=== PATIENT | female | born 1980 | race American Indian/Alaskan Native ===

== ENCOUNTER 2019-05-21 09:15 | Emergency (ER) | payer OTHER ==
[2019-05-21] MEDS ORDERED: HYDROcodone/ACETAMINOPHEN 5-325 MG TAB PO ONE (11:12)
--- NOTE | 2019-05-21 12:10 | Emergency Department Report ---
ED General Adult HPI - General Chief complaint: Rectal Pain Stated complaint: HEMORROIDS Time Seen by Provider: 05/21/19 10:35 Source: patient Mode of arrival: Ambulatory Limitations: No Limitations - History of Present Illness Initial comments: This is a 38-year-old female with a history of hemorrhages who presents to ED complaining of rectal pain from hemorrhages for the past 10 days. Patient states the last episode happened 6 months ago and this is her second episode this year. Patient states that bowel movements are regular and she had a bowel movement this morning. Patient states the pain is alleviated with bowel movement. She denies abdominal pain, blood in stool, fever, chills, nausea vomiting or any other symptoms. - Related Data Previous Rx's Medication Instructions Recorded Last Taken Type Hydrocortisone [Anucort-HC SUPPOS] 25 mg RC BID #30 supp.rect 05/21/19 Unknown Rx Hydrocortisone [Anusol-Hc 2.5% TOP 1 applic RC TID #1 cream..g. 05/21/19 Unknown Rx CREAM] Ibuprofen [Motrin] 800 mg PO Q8HR #20 tablet 05/21/19 Unknown Rx Allergies Allergy/AdvReac Type Severity Reaction Status Date / Time No Known Allergies Allergy Unverified 05/21/19 09:16 ED Review of Systems ROS: Stated complaint: HEMORROIDS Other details as noted in HPI Comment: All other systems reviewed and negative ED Past Medical Hx - Surgical History Additional Surgical History: T & A / C SECTION - Social History Smoking Status: Current Every Day Smoker Substance Use Type: Alcohol - Medications Home Medications: Home Medications Medication Instructions Recorded Confirmed Last Taken Type Hydrocortisone [Anucort-HC SUPPOS] 25 mg RC BID #30 supp.rect 05/21/19 Unknown Rx Hydrocortisone [Anusol-Hc 2.5% TOP 1 applic RC TID #1 cream..g. 05/21/19 Unknown Rx CREAM] Ibuprofen [Motrin] 800 mg PO Q8HR #20 tablet 05/21/19 Unknown Rx ED Physical Exam - General Limitations: No Limitations (external, no swelling , non tender,) General appearance: alert, in no apparent distress - Head Head exam: Present: atraumatic, normocephalic - Eye Eye exam: Present: normal appearance - ENT ENT exam: Present: mucous membranes moist - Neck Neck exam: Present: normal inspection - Respiratory Respiratory exam: Present: normal lung sounds bilaterally. Absent: respiratory distress - Cardiovascular Cardiovascular Exam: Present: regular rate, normal rhythm. Absent: systolic murmur, diastolic murmur, rubs, gallop - GI/Abdominal GI/Abdominal exam: Present: soft, normal bowel sounds - Rectal Rectal exam: Present: normal rectal tone, hemorrhoids, tenderness. Absent: fecal impaction, mass - Extremities Exam Extremities exam: Present: normal inspection, full ROM - Back Exam Back exam: Present: normal inspection - Neurological Exam Neurological exam: Present: alert, oriented X3 - Psychiatric Psychiatric exam: Present: normal affect, normal mood - Skin Skin exam: Present: warm, dry, intact, normal color. Absent: rash ED Course Vital Signs 05/21/19 09:21 Temperature 98.0 F Pulse Rate 110 H Respiratory 20 Rate Blood Pressure 120/90 O2 Sat by Pulse 100 Oximetry ED Medical Decision Making - Medical Decision Making 38-year-old female who presents to ED complaining rectal pain from hemorrhoids external + pain medication was given the ED. Discussed with patient will discharge her with medication suppositories for hemorrhoids. Discussed follow-up with urology. Referrals given. Discussed the patient hive fibrous diet. Vital signs are normal patient is in no acute distress. Critical care attestation.: If time is entered above; I have spent that time in minutes in the direct care of this critically ill patient, excluding procedure time. ED Disposition Clinical Impression: External hemorrhoids without complication Disposition: DC-01 TO HOME OR SELFCARE Is pt being admited?: No Does the pt Need Aspirin: No Condition: Stable Instructions: Hemorrhoidectomy (ED), Hemorrhoids (ED) Additional Instructions: Make sure to follow up with the primary care physician as discussed. Take all your medications as you've been prescribed. If you have any worsening symptoms or develop new symptoms please return to ED immediately. Prescriptions: Hydrocortisone [Anucort-HC SUPPOS] 25 mg RC BID #30 supp.rect Hydrocortisone [Anusol-Hc 2.5% TOP CREAM] 1 applic RC TID #1 cream..g. Ibuprofen [Motrin] 800 mg PO Q8HR #20 tablet Referrals: [facility] [Outside] - 3-5 Days [facility] [Outside] - 3-5 Days KORY MCLEAN MD [Referring] - 3-5 Days Forms: Accompanied Note, Work/School Release Form(ED) Time of Disposition: 12:16
[2019-05-21 13:07] VITALS: BP 120/87
== END 2019-05-21 13:07 | disposition home or self-care (01) ==
LOC: ED 09:15
DX: K64.4 Residual hemorrhoidal skin tags (principal); F17.200 Nicotine dependence, unspecified, uncomplicated; F10.10 Alcohol abuse, uncomplicated; Z79.899 Other long term (current) drug therapy
CPT/HCPCS: 99282

== ENCOUNTER 2019-05-25 13:47 | Emergency (ER) | payer OTHER ==
[2019-05-25 14:36] VITALS: BP 129/76
--- NOTE | 2019-05-25 14:38 | Event Note ---
ED Screening Note Date of service: 05/25/19 Time: 14:37 ED Screening Note: 38 y o female returns to Ed for recta pain stating she wasnt able to follow up with rectal pain from hemmorhoids, states pain is only locaalized to rectal, normal BM, currently on suppositories denies rectal bleeding This initial assessment/diagnostic orders/clinical plan/treatment(s) is/are subject to change based on patients health status, clinical progression and re- assessment by fellow clinical providers in the ED. Further treatment and workup at subsequent clinical providers discretion. Patient/guardian urged not to elope from the ED as their condition may be serious if not clinically assessed and managed. Initial orders include: Follow GI referral as given on saturday VSS no acute distress d/c instructions given to f/u
== END 2019-05-25 15:29 | disposition left against medical advice (07) ==
LOC: ED 13:47
DX: R10.2 Pelvic and perineal pain (principal); Z53.21 Procedure and treatment not carried out due to patient leaving prior to being seen by health care provider

== ENCOUNTER 2019-06-20 15:33 | Emergency (ER) | payer OTHER ==
[2019-06-20 16:03] VITALS: BP 127/77
--- NOTE | 2019-06-20 17:35 | Event Note ---
ED Screening Note Date of service: 06/20/19 Time: 17:31 ED Screening Note: 38 y/o female comes in for syncope today. Has this happen 3 times in the past. Did not hit head. Unwitnessed. LMP 06/04/19. This initial assessment/diagnostic orders/clinical plan/treatment(s) is/are subject to change based on patients health status, clinical progression and re- assessment by fellow clinical providers in the ED. Further treatment and workup at subsequent clinical providers discretion. Patient/guardian urged not to elope from the ED as their condition may be serious if not clinically assessed and managed. Initial orders include:
[2019-06-20 18:43] LABS: Basophils # (Auto) 0.1 K/mm3 (0.0-0.1); Basophils % (Auto) 0.5 % (0.0-1.8); Eosinophils % (Auto) 0.4 % (0.0-4.3); Hematocrit 43.8 % (30.3-42.9); Hemoglobin 14.3 gm/dl (10.1-14.3); Lymphocytes # (Auto) 1.4 K/mm3 (1.2-5.4); Lymphocytes % (Auto) 10.5 % (13.4-35.0); Mean Corpuscular HGB Conc 33 % (30-34); Mean Corpuscular Volume 88 fl (79-97); Monocytes # (Auto) 0.8 K/mm3 (0.0-0.8); Monocytes % (Auto) 5.9 % (0.0-7.3); Platelet Count 309 K/mm3 (140-440); Red Blood Count 4.97 M/mm3 (3.65-5.03); Red Cell Distribution Width 14.6 % (13.2-15.2)
[2019-06-20 19:10] LABS: Alanine Aminotransferase 11 units/L (7-56); Albumin 4.5 g/dL (3.9-5); BUN/Creatinine Ratio 13; Blood Urea Nitrogen 12 mg/dL (7-17); Calcium 9.9 mg/dL (8.4-10.2); Hemolysis Index 16
== END 2019-06-20 18:35 | disposition left against medical advice (07) ==
LOC: ED 15:33
DX: R55 Syncope and collapse (principal); Z53.21 Procedure and treatment not carried out due to patient leaving prior to being seen by health care provider
CPT/HCPCS: 36415; 80053; 85025; 93005; 93010

== ENCOUNTER 2021-03-10 09:35 | Inpatient (IN) | payer MEDICAID ==
[2021-03-10] MEDS ORDERED: LACTATED RINGERS 1,000 ML ONE ×2 (09:55→11:52)
--- NOTE | 2021-03-10 10:07 | Anesthesia Consultation ---
Anesthesia Consult and Med Hx Date of service: 03/10/21 - Airway Anesthetic Teeth Evaluation: Good ROM Head & Neck: Adequate Mental/Hyoid Distance: Adequate Mallampati Class: Class II Intubation Access Assessment: Probably Good - Pulmonary Exam CTA: Yes - Cardiac Exam Cardiac Exam: RRR - Pre-Operative Health Status ASA Pre-Surgery Classification: ASA2 Proposed Anesthetic Plan: Spinal
--- NOTE | 2021-03-10 10:07 | Anesthesia Day of Surgery ---
Anesthesia Day of Surgery - Day of Surgery Patient Examined: Yes Patient H&P Reviewed: Yes Patient is NPO: Yes
[2021-03-10] MEDS ORDERED: METOCLOPRAMIDE 10 MG/2 ML INJ IV ONE (10:20)
[2021-03-10] MEDS ORDERED: BICITRA ORAL LIQD 30ML PO ONE (10:20)
[2021-03-10] MEDS ORDERED: FAMOTIDINE 20 MG/2 ML INJ IV ONE (10:20)
--- NOTE | 2021-03-10 10:20 | History and Physical Report ---
History of Present Illness Date of examination: 03/10/21 Date of admission: 03/10/21 09:35 Chief complaint: Intrauterine growth restriction History of present illness: 40-year-old -0-0-1 at 38+1 weeks who presents for a repeat delivery secondary to intrauterine growth restriction, history of a prior delivery, pericardial effusion in the fetus. The patient initiated her care in the first trimester. Her was also complicated by a uterine anomaly but evidence of a bicornuate uterus, advanced maternal age, history of genital herpes, and a history of COVID during this . The patient elected to undergo a repeat delivery. Past History Past Medical History: other (Uterine anomaly) Past Surgical History: tonsillectomy, section Social history: - Obstetrical History Expected Date of Delivery: 03/23/21 Actual Gestation: 38 Week(s) 1 Day(s) : 2 Para: 1 Hx # Term Pregnancies: 1 Number of Pregnancies: 0 Spontaneous Abortions: 0 Induced : 0 Number of Living Children: 1 Medications and Allergies Allergies Allergy/AdvReac Type Severity Reaction Status Date / Time lactase [From Dairy Aid] Allergy Rash Verified 03/10/21 10:17 Milk Containing Products Allergy Rash Verified 03/10/21 10:17 Home Medications Medication Instructions Recorded Confirmed Last Taken Type Hydrocortisone [Anucort-HC SUPPOS] 25 mg RC BID #30 supp.rect 05/21/19 Unknown Rx Hydrocortisone [Anusol-Hc 2.5% TOP 1 applic RC TID #1 cream..g. 05/21/19 Unknown Rx CREAM] Ibuprofen [Motrin] 800 mg PO Q8HR #20 tablet 05/21/19 Unknown Rx Review of Systems All systems: negative Genitourinary: no leakage of fluid, no contractions - Vital Signs Vital signs: Vital Signs Pulse BP 77 114/74 03/10/21 10:07 03/10/21 10:07 Temp Pulse Resp BP Pulse Ox 74 114/74 99 03/10/21 10:16 03/10/21 10:07 03/10/21 10:16 - Physical Exam Breasts: Positive: deferred, mass Lungs: Positive: Clear to auscultation Abdomen: Positive: normal appearance Results Result Diagrams: 03/10/21 10:11 All other labs normal. Assessment and Plan - Patient Problems (1) Intrauterine growth restriction affecting care of mother Current Visit: Yes Status: Acute Plan to address problem: Will proceed with a repeat delivery (2) Previous delivery, delivered Current Visit: Yes Status: Acute (3) Advanced maternal age (AMA) in Current Visit: Yes Status: Acute
[2021-03-10] MEDS ORDERED: LACTATED RINGERS 1,000 ML IV SCH (10:30)
[2021-03-10 10:49] LABS: Basophils # (Auto) 0.1 K/mm3 (0.0-0.1); Basophils % (Auto) 0.9 % (0.0-1.8); Eosinophils # (Auto) 0.1 K/mm3 (0.0-0.4); Eosinophils % (Auto) 1.9 % (0.0-4.3); Hematocrit 35.2 % (30.3-42.9); Hemoglobin 12.1 gm/dl (10.1-14.3); Lymphocytes # (Auto) 1.6 K/mm3 (1.2-5.4); Lymphocytes % (Auto) 20.8 % (13.4-35.0); Mean Corpuscular HGB Conc 34 % (30-34); Mean Corpuscular Volume 86 fl (79-97); Monocytes # (Auto) 0.8 K/mm3 (0.0-0.8); Monocytes % (Auto) 9.8 % (0.0-7.3); Platelet Count 220 K/mm3 (140-440); Red Blood Count 4.09 M/mm3 (3.65-5.03)
[2021-03-10] MEDS ORDERED: ceFAZolin/Water 2 GM/20 ML 2 GM/20 ML SYRINGE IV NR (11:00)
[2021-03-10] MEDS ORDERED: OXYTOCIN DRIP 30 UNITS/500 ML BAG IV SCH ×2 (11:00→13:00)
[2021-03-10] MEDS ORDERED: BUPIVACAINE/PF (0.5%) 5 MG/1 ML 30 ML VIAL INFILTRATI ONE (11:52)
[2021-03-10] MEDS ORDERED: ONDANSETRON 4 MG/2 ML INJ ONE (11:52)
[2021-03-10] MEDS ORDERED: HETASTARCH 6% 500 ML IV ONE (11:52)
[2021-03-10] MEDS ORDERED: SODIUM CHLORIDE 0.9% IRR 1,500 ML BOTTLE IR ONE (11:52)
[2021-03-10] MEDS ORDERED: KETOROLAC 30 MG/1 ML INJ ONE (11:52)
[2021-03-10] MEDS ORDERED: PHENYLEPHRINE/NS 1,000 MCG/10 ML SYRINGE (OR USE) IV ONE (11:52)
[2021-03-10] MEDS ORDERED: dexAMETHasone 20 MG/5 ML VIAL ONE (11:52)
[2021-03-10] MEDS ORDERED: WATER FOR IRRIG STERILE 1,500 ML BOTTLE IR ONE (11:52)
--- NOTE | 2021-03-10 12:49 | Procedure Note ---
OB Delivery Note - Delivery Date of Delivery: 03/10/21 Surgeon: LAVELLE WIGGINS Estimated blood loss: other (525 mL) - Section Preop diagnosis: repeat Postop diagnosis: same section procedure: section Disposition: PACU Complications: none - A at 1 minute: 8 at 5 minutes: 9 Gender: Female (5 pounds 12 ounces)
[2021-03-10] MEDS ORDERED: LANOLIN/ZINC/DIMETHICONE (LANSINOH) 7 GM TP PRN (12:55)
[2021-03-10] MEDS ORDERED: NALOXONE 0.4 MG/1 ML INJ IV PRN (12:55)
[2021-03-10] MEDS ORDERED: WITCH HAZEL/ GLYCERIN PAD TP PRN (12:55)
[2021-03-10] MEDS ORDERED: MORPHINE 4 MG/1 ML INJ IV PRN (12:55)
--- NOTE | 2021-03-10 12:55 | Operative Report ---
Operative Report Operative Report: Date of surgery: March 10, 2021 Preoperative diagnosis: at 38+1 weeks; previous delivery; intrauterine growth restriction; pericardial effusion; uterine anomaly Postoperative diagnosis: Same as above Procedure: Repeat low transverse delivery and lysis of adhesions Surgeon: Milly Richter M.D. Anesthesia: Regional Estimated blood loss: 525 mL Urine output: 100 mL IV fluids: 1500 mL Findings: Liveborn female with Apgars of 8 and 9 weight 5 pounds 12 ounces Indications: 40-year-old -0-0-1 at 38+1 weeks who presents for repeat delivery for intrauterine growth restriction. The patient also has a history of a uterine anomaly. Procedure: The patient was taken to the operating room and given regional anesthesia without complication. She was prepped and draped in a normal sterile fashion. A Pfannenstiel skin incision was made down to layer the fascia which was nicked in the midline extended laterally with the Bovie cautery. The superior aspect of the rectus fascia was grasped with Catherine clamps x2 and the rectus muscles off sharply. This was done in inferior fashion as well. The rectus muscle midline and peritoneum entered bluntly. The uterus was noticed to be adherent to the anterior abdominal wall. Lysis of adhesions had to be performed. An Austyn retractor was then inserted. A bladder blade was placed. The vesicouterine peritoneum was then entered sharply with Metzenbaum scissors. A bladder flap was created digitally. A low transverse uterine incision was then made and extended digitally. There was clear fluid upon entry into the uterine cavity. The head was delivered through the incision with fundal pressure. The cord was clamped and cut x2 and was passed off to pediatrics. The placenta was then manually extracted. The uterus could not be exteriorized secondary to the multiple adhesions. The uterine incision had to be closed in situ. The uterine incision was then closed in a running locked fashion with 0 Vicryl additional imbricating stitch was applied for 2 layer closure. The posterior cul-de-sac was then copiously irrigated. The abdomen and pelvis were the gutters were then irrigated. The Austyn retractor was then removed. The patient's uterus was noted to have a uterine anomaly consistent with bicornuate uterus with a smaller secondary uterine horn on the patient's side. There was also noted to be a small calcified leiomyoma on the left uterine horn. The peritoneum was then reapproximated with 3-0 Vicryl incorporating the rectus muscle. The fascia was then closed with 0 Vicryl in a running fashion. The skin was then reapproximated with 3-0 Monocryl on a Max needle subcuticular fashion. Steri-Strips to place across the incision and a Crede procedures performed at the end of the surgery. A pressure dressing was applied to the incision. The surgery productive of a liveborn female with Apgars of 8 and 9 weight 5 pounds 12 ounces. The patient was taken to the recovery room in stable condition. All sponge laps and needle counts correct x2.
[2021-03-10] MEDS ORDERED: D5W/LACTATED RINGERS 1,000 ML IV SCH (13:00)
[2021-03-10] MEDS: KETOROLAC 30 MG/1 ML INJ IV PRN (16:50)
[2021-03-11] MEDS: oxyCODONE /ACETAMINOPHEN 5-325MG TAB PO PRN ×3 (04:42→21:41)
[2021-03-11] MEDS ORDERED: TETANUS,DIPH,PERTUSS(ACELL) VACCINE 0.5 ML SYRINGE IM ONE ×2 (06:00→21:00)
[2021-03-11 06:42] LABS: Hematocrit 34.5 % (30.3-42.9); Hemoglobin 10.5 gm/dl (10.1-14.3)
[2021-03-11] MEDS: KETOROLAC 30 MG/1 ML INJ IV PRN (09:41)
--- NOTE | 2021-03-11 12:57 | Progress Note ---
Assessment and Plan Postop day 1 status post repeat section. Patient is doing well. Patient is breast-feeding. Plan for discharge on tomorrow if infant ready to go home. Subjective - Subjective Date of service: 03/11/21 Principal diagnosis: Previous Interval history: Postop day 1 status post repeat . Covid positive Patient reports: appetite normal, voiding normally, pain well controlled, ambulating normally [place]: doing well Objective - Vital Signs Latest vital signs: Vital Signs Temp Pulse Resp BP BP Pulse Ox Pulse Ox 03/11/21 09:57 98 03/11/21 09:46 98.7 F 60 22 103/68 98 03/11/21 07:30 98 03/11/21 05:18 97.8 F 53 L 18 124/73 100 03/11/21 04:42 18 100 03/11/21 00:00 97.6 F 63 18 104/61 98 03/10/21 20:30 98.0 F 59 L 18 102/69 99 03/10/21 19:30 99 03/10/21 18:35 97.7 F 03/10/21 14:50 97.3 F L 61 18 114/71 100 100 03/10/21 14:00 97.4 F L 98 H 18 104/75 03/10/21 13:45 100 H 18 104/67 03/10/21 13:30 61 18 105/78 03/10/21 13:15 64 20 96/59 03/10/21 13:00 69 18 99/67 Intake and Output 03/10/21 03/11/21 03/11/21 22:59 06:59 14:59 Intake Total 400 600 Output Total 2100 1200 Balance -1700 -600 Intake: Oral 400 600 Output: Urine 2100 1200 Indwelling Catheter 1500 200 Uretheral (Siu) 600 400 Void 600 Other: Total, Intake Amount 200 200 Total, Output Amount 200 300 - Exam Breasts: Present: deferred Cardiovascular: Present: Regular rate, Normal S1, Normal S2 Lungs: Present: Clear to auscultation, Normal air movement Abdomen: Present: normal appearance, soft, normal bowel sounds Vulva: both: normal Uterus: Present: normal, firm Extremities: Present: normal Incision: Present: normal, dry, intact - Labs Labs: Abnormal lab results 03/10/21 Range/Units Unknown Coronavirus (PCR) Positive A (Negative)
--- NOTE | 2021-03-11 21:19 | Post Anesthesia Evaluation ---
- Post Anesthesia Evaluation Patient Participated: Yes Airway Patent: Yes Stable Respiratory Function: Yes Nausea/Vomiting: No Temp > 96.8F: Yes Pain Manageable: Yes Adequeate Hydration: Yes Anesthesia Complications: No Block Receding Appropriately: Yes
[2021-03-12] MEDS: oxyCODONE /ACETAMINOPHEN 5-325MG TAB PO PRN ×2 (05:24→11:17)
[2021-03-12] MEDS: IBUPROFEN 600 MG TAB PO PRN ×2 (09:18→16:27)
--- NOTE | 2021-03-12 09:34 | Discharge Summary ---
Providers - Providers Date of Admission: 03/10/21 09:35 Date of discharge: 03/12/21 Attending physician: LAVELLE WIGGINS Primary care physician: JONAS WADDELL Hospitalization Reason for admission: section Delivery: Procedure: repeat low transverse Episiotomy: none Laceration: none Incision: normal, dry, intact Other procedures: tubal ligation complications: none Discharge diagnosis: IUP at term delivered Shaniko baby: female Condition at discharge: Stable Disposition: 01 HOME / SELF CARE / HOMELESS - Discharge Diagnoses (1) COVID-19 affecting in third trimester Status: Acute Plan - Discharge Medications Prescriptions: Docusate Sodium [Colace] 100 mg PO BID #60 capsule Ibuprofen [Motrin] 800 mg PO Q8HR PRN #40 tablet PRN Reason: Pain, Mild (1-3) oxyCODONE /ACETAMINOPHEN [Percocet 5/325] 2 tab PO Q6HR PRN #40 tablet PRN Reason: Pain - Provider Discharge Summary Activity: routine, no sex for 6 weeks, no heavy lifting 4 weeks Diet: routine Instructions: routine Additional instructions: [] Smoking cessation referral if applicable(refer to patient education folder for contact #) [] Refer to [facility]'s [facility] Booklet Call your doctor immediately for: * Fever > 100.5 * Heavy vaginal bleeding ( >1 pad per hour) * Severe persistent headache * Shortness of breath * Reddened, hot, painful area to leg or breast * Drainage or odor from incision. * Keep incision clean and dry at all times and follow doctor's instructions regarding bathing/showering - Follow up plan Follow up: JONAS WADDELL MD [Primary Care Provider] - 14 Days
[2021-03-12 17:19] VITALS: BP 100/70
== END 2021-03-12 17:12 | disposition home or self-care (01) | DRG 765 ==
LOC: APU 09:35 → OB 14:31
PROVIDERS: ADMIT Obstetrics & Gynecology; ATTEND Obstetrics & Gynecology
PROC: 10D00Z1 Extraction of Products of Conception, Low, Open Approach (ICD-10-PCS; principal; 2021-03-10)
PROC: 3E0234Z Introduction of Serum, Toxoid and Vaccine into Muscle, Percutaneous Approach (ICD-10-PCS; 2021-03-10)
DX: O36.5930 Maternal care for other known or suspected poor fetal growth, third trimester, not applicable or unspecified (principal); U07.1 COVID-19; O98.52 Other viral diseases complicating childbirth; O34.211 Maternal care for low transverse scar from previous cesarean delivery; O34.03 Maternal care for unspecified congenital malformation of uterus, third trimester; Z23 Encounter for immunization; Z3A.38 38 weeks gestation of pregnancy; Z37.0 Single live birth; Q51.3 Bicornate uterus; Z91.011 Allergy to milk products
CPT/HCPCS: 36415; 85014; 85018; 85025; 86850; 86900; 86901; 88307; 90471; 90715; 99211; G0378; A6250; G0463; J1100; J1885; J2270; J2370; J2405; J3490; J7120; J7121; U0003